=== PATIENT | female | born 1950 | race Caucasian/White ===

== ENCOUNTER → 2018-11-19 | Day surgery (SDC) | payer MEDICARE, OTHER ==
[~2018-11-19] VITALS: Ht 160 cm; Wt 59.0 kg
[~2018-11-19] MED LIST: CALCIUM500 MG PO; GLUCOSAMINE-CH1 EACH; LEVOTHYROXINE100 MCG; MULTI VITAMIN1 EACH
--- NOTE | 2018-11-19 14:42 | NUR ---
11/19/18 1442 Bettie Rodrigeuz 1438 PATIENT ARRIVES TO PACU SLEEPING, OPENS EYES TO VERBAL STIMULI, THEN BACK TO SLEEP. RESP EVEN AND UNLABORED, ROOM AIR SATS >95%.
--- NOTE | 2018-11-19 15:40 | NUR ---
RETURN SLEEPY RECD ABIEL 1513. at bs.
--- NOTE | 2018-11-19 17:50 | NUR ---
1730 AWAKE SAYS READY TO GO HOME. ASSIST TO BR VOIDS QS. AMB WELL. HAS BEEN GIVEN DC INSTRUCTIONS EARLIER BY PACU NURSE. NO QUESTIONS.
--- NOTE | 2018-11-20 15:36 | OR ---
[facility] [address], [place] [address] Signed DATE OF OPERATION: 11/19/2018 SURGEON: Hayden Gallegos MD PREOPERATIVE DIAGNOSIS: Colon screening. POSTOPERATIVE DIAGNOSIS: Normal colon to cecum. PROCEDURE: Total colonoscopy to cecum. ANESTHESIA: Intravenous sedation, fentanyl 150 mcg, Versed 8 mg. INDICATION: This 68-year-old white woman is a patient of MARQUEZ Lozano as well as Dr. Yael Leos. She was last seen by me for colonoscopy in 2013, which was normal. She is symptom free having no bleeding, diarrhea, or constipation and has no family history of colon cancer. It was recalled that she has undergone breast cancer treatment by me including lumpectomy and radiation therapy in 2008 and remained free of recurrent disease. She is admitted at this time to undergo colonoscopy for surveillance. She understands the risks of bleeding, infection, and perforation. FINDINGS: The prep was excellent. Complete colonoscopy was undertaken to the cecum without question. Her colon was tortuous and somewhat elongated and was quite markedly challenging, but ultimately was accomplished safely. There was no sign of polyps, diverticular formation, colitis, or cancer. DESCRIPTION OF PROCEDURE: The patient was brought to the endoscopy suite and placed in lateral decubitus position given intravenous sedation to the point of slurred speech and nystagmus. Digital rectal examination was normal. An Olympus video colonoscope was passed in the rectum and manipulated throughout the colon. Passage through the splenic flexure and transverse colon and ultimately beyond to the right colon was rather laborious and challenging due to lack of fixation of the colon itself most likely. Ultimately, the cecum was obtained with all due care showing Electronically Signed By: HAYDEN GALLEGOS MD 11/20/18 1536 PATIENT NAME: DEMETRI MOREJON OPERATIVE REPORT DATE OF : 54 REPORT #: [id number] PHYSICIAN: HAYDEN GALLEGOS MD PCP: DARA HARRISON REPORT IS CONFIDENTIAL AND NOT TO BE RELEASED WITHOUT AUTHORIZATION [facility] [address] [place] [id number] Signed appendiceal orifice and ileocecal valve. Photographs were taken. Scope was withdrawn from that point and examination throughout showed no sign of polyps, diverticular formation, colitis, or cancer. Retroflexed view was normal as well. The scope was removed. The patient was taken to recovery room in good condition. CONCLUDING DIAGNOSIS: Normal colon to cecum. PLAN: Recommend repeat colonoscopy in 10 years, sooner if symptoms should occur. MD WINTER Antonio/ROCIO /[id number] cc: MD Dara Mohr PA-C Copies: YAEL LEOS MD, ERIKA PAC ~ Electronically Signed By: HAYDEN GALLEGOS MD 11/20/18 1536 PATIENT NAME: DEMETRI MOREJON OPERATIVE REPORT DATE OF : 54 REPORT #: [id number] PHYSICIAN: HAYDEN GALLEGOS MD PCP: DARA HARRISON PAC REPORT IS CONFIDENTIAL AND NOT TO BE RELEASED WITHOUT AUTHORIZATION
== END ==
LOC: OPS 12:56 → DS 14:00
PROVIDERS: Surgery
PROC: 0DJD8ZZ Inspection of Lower Intestinal Tract, Via Natural or Artificial Opening Endoscopic (ICD-10-PCS; principal; 2018-11-19 14:00)
DX: Z12.11 Encounter for screening for malignant neoplasm of colon (principal); E03.9 Hypothyroidism, unspecified; L98.8 Other specified disorders of the skin and subcutaneous tissue; M19.90 Unspecified osteoarthritis, unspecified site; Z85.3 Personal history of malignant neoplasm of breast; Z92.3 Personal history of irradiation; Z91.030 Bee allergy status; Z98.890 Other specified postprocedural states; Z79.890 Hormone replacement therapy
CPT/HCPCS: G0121; 99153; G0500; J2250; J2310; J3010; J7120

== ENCOUNTER 2020-05-30 06:59 | Day surgery (SDC) | payer MEDICARE, OTHER ==
[~2020-05-30] VITALS: Ht 160 cm; Wt 58.2 kg
--- NOTE | ~2020-05-30 | OR ---
[facility] [address] [place], [place] [address] Draft DATE OF OPERATION: 05/30/2020 SURGEON: Malcolm Goldberg MD PREOPERATIVE DIAGNOSIS: Septal deformity causing nasal obstruction. POSTOPERATIVE DIAGNOSIS: Septal deformity causing nasal obstruction. PROCEDURE: Septoplasty. ANESTHESIA: General LMA. CERTIFIED SURGICAL TECH/FIRST ASSISTANT: Janneth. PREOPERATIVE HISTORY: Demetri is a 69-year-old lady with right-sided nasal obstruction. This has been present for many years, unresponsive to appropriate medications. She has sleep apnea, using CPAP, difficulty tolerating her CPAP due to the nasal obstruction and she has taken to the operating room for the above-mentioned procedures. OPERATIVE PROCEDURE AND FINDINGS: After informed consent, the patient was taken to the operating room, placed in supine position where general LMA anesthesia was induced. The patient and procedure were verified. The patient received preoperative intravenous Ancef and intranasal oxymetazoline. The patient was repositioned. Headlight speculum exam of the nasal cavity showed a septal deformity obstructive on the right side. The septal mucosa was injected on both sides with 1% lidocaine with epi, a total of 5 mL. Left hemitransfixion incision was made, submucoperichondrial pocket elevated on the left side. Incision was made through the septal cartilage to the right side a cm posterior to the mucosal incision and a submucoperichondrial pocket elevated on the right. All deviated septal bone and cartilage were then removed with Junito. The septum was medialized, airway improved. A small tear on the right side was occurred. The incision was then closed with 4-0 interrupted chromic. Packing was placed, trimmed Merocel equal amount each side, coated with Neosporin, tied anteriorly over a pad. Hemostasis was verified. The pharynx was suctioned clear of blood secretions. The patient was then PATIENT NAME: DEMETRI MOREJON OPERATIVE REPORT DATE OF : 54 REPORT #: [id number] PHYSICIAN: MALCOLM GOLDBERG MD PCP: SAY HEMPHILL REPORT IS CONFIDENTIAL AND NOT TO BE RELEASED WITHOUT AUTHORIZATION [facility] [address] [place], [place] [address] Draft awakened, extubated, transported to the recovery room in good condition. No complications. BLOOD LOSS: Minimal. SPECIMEN: No specimens. DRAINS: No drains. PACKING: One piece of Merocel in each nostril. Malcolm Goldberg MD GC/MODL /[id number] Copies: ~ PATIENT NAME: DEMETRI MOREJON OPERATIVE REPORT DATE OF : 54 REPORT #: [id number] PHYSICIAN: MALCOLM GOLDBERG MD PCP: SAY HEMPHILL REPORT IS CONFIDENTIAL AND NOT TO BE RELEASED WITHOUT AUTHORIZATION
[~2020-05-30 06:59] MED LIST changes: +CYMBALTA30 MG PO; -LEVOTHYROXINE100 MCG; +LEVOTHYROXINE100 MCG PO
[2020-05-30] MEDS ORDERED: VITAMIN D-40010 MCG PO (07:13)
[2020-05-30] MEDS ORDERED: VITAMIN C60 MG PO (07:14)
--- NOTE | 2020-05-30 09:28 | NUR ---
05/30/20927 Sylvia Akhtar 0906 PT ARRIVED IN PACU NON RESPONSIVE TO NOXIOUS STIMULI. CHIN LIFT HELD BY RN. [address] AT BEDSIDE. 0925 PT REACTIVE TO VERBAL STIMULI. OPENS EYES, THEN FALLS BACK TO SLEEP. PERIODICALLY MOVING R ARM IN THE AIR.
--- NOTE | 2020-05-30 09:53 | NUR ---
RETURNS TO DAY SURGERY. REPORT RECIEVED. DENIES SURGICAL PAIN. DOES REPORT SORE THROAT. ICE GIVEN PER PT REQUEST. BAIRPAWS WARMER USED. PT REMAINS SLEEPY AND IN AN ALTERED STATE. SHE DOES RESPOND APPROPRIATELY WHEN STIMULATED. SIPS OF WATER GIVEN. FALLS ASLEEP EASILY.
--- NOTE | 2020-05-30 10:51 | NUR ---
PT REMAINS SLEEPY BUT IS MORE RESPONSIVE. ICE AND WATER PROVIDED. REFUSES OFFER OF CRACKERS OR OTHER FOOD AT THIS POINT. RATES PAIN 2/10 BUT REFUSES OFFER OF PRN MEDICATION FOR PAIN. DENIES NAUSEA.
--- NOTE | 2020-05-30 11:36 | NUR ---
PT NOW MUCH MORE AWAKE. MEDICATED FOR PAIN PER EMAR. DENIES NAUSEA. REVIEWED DISCHARGE INSTRUCTIONS WITH PT AND SPOUSE AT BEDSIDE. RX GIVEN WITH COPY OF DISCHARGE INSTRUCTIONS.
--- NOTE | 2020-05-30 11:45 | NUR ---
STEADY ON FEET WITH ONE PERSON STAND BY ASSIST FOR AMBULATION TO BR. UNMEASURED URINE. CONTINUES TO DENY NAUSEA AND RATES PAIN 1-2/10.
== END 2020-05-30 12:00 | disposition home or self-care (01) ==
LOC: DS 06:59
PROVIDERS: ATTEND Otolaryngology
PROC: 09JY8ZZ Inspection of Sinus, Via Natural or Artificial Opening Endoscopic (ICD-10-PCS; 2020-05-30)
PROC: 09BM0ZZ Excision of Nasal Septum, Open Approach (ICD-10-PCS; principal; 2020-05-30 08:30)
DX: J34.2 Deviated nasal septum (principal); J34.89 Other specified disorders of nose and nasal sinuses; G47.33 Obstructive sleep apnea (adult) (pediatric); E03.9 Hypothyroidism, unspecified; Z91.030 Bee allergy status; Z79.82 Long term (current) use of aspirin; Z79.899 Other long term (current) drug therapy; Z79.890 Hormone replacement therapy
CPT/HCPCS: J0690; J1100; J2001; J2250; J2405; J2704; J7121